=== PATIENT | female | born 1950 | race Caucasian/White ===

== ENCOUNTER 2018-01-19 04:50 | Emergency (ER) | payer OTHER ==
[~2018-01-19 04:50] MED LIST: ALBUTEROL/IPRATROPIUM 1 VIAL SOL INH ONE
[2018-01-19] MEDS ORDERED: ALBUTEROL/IPRATROPIUM 1 VIAL SOL ONE (05:11)
[2018-01-19 05:16] VITALS: BP 144/99; PULSE 89; RESP 28; TEMP 96.4; O2SAT 96
[2018-01-19] MEDS ORDERED: PREDNISONE 20 MG TAB PO ONE (05:28)
[2018-01-19] MEDS ORDERED: PREDNISONE 20 MG TAB ONE (05:30)
== END 2018-01-19 05:44 | disposition home or self-care (01) | DRG 192 ==
LOC: ED 04:50
DX: J44.1 Chronic obstructive pulmonary disease with (acute) exacerbation (principal); F17.200 Nicotine dependence, unspecified, uncomplicated
CPT/HCPCS: 99282; 99283; A9270-GY